=== PATIENT | female | born 1950 | race Caucasian/White ===

== ENCOUNTER 2017-03-14 07:27 | Inpatient (IN) | payer OTHER ==
[~2017-03-14] VITALS: Ht 165.1 cm; Wt 120.2 kg
--- NOTE | ~2017-03-14 | P ---
[facility] [place] [address] PROCEDURE REPORT Name: HUSSEIN BRICE Room #: 407-P ADM IN M.R.#: [id number] Admission: 03/14/17 Attend Phys: Toya Olsen Discharge: Date of : 46 Report #: [id number] THIS REPORT FOR: //name// CC: Toya Olsen MD DATE OF SERVICE: 03/19/2017 BRIEF HISTORY: The patient is a 66-year-old woman with iron deficiency anemia of uncertain etiology. PREOPERATIVE DIAGNOSIS: Iron deficiency anemia. POSTOPERATIVE DIAGNOSES: 1. Diminutive polyp, splenic flexure. 2. Multiple submucosal mass lesions of colon, questionably lipomas. MEDICATIONS: Deep sedation with propofol per anesthesia. SPECIMENS: 1. Biopsy submucosal lesion, distal transverse colon. 2. Diminutive polyp, splenic flexure. ESTIMATED BLOOD LOSS: 3 mL. PROCEDURE: Colonoscopy to cecum and terminal ileum with biopsy. DESCRIPTION OF PROCEDURE: The patient's consented for the surgery due the patient's altered mental status. Subsequently, the [employer] video colonoscope was introduced in the rectum, advanced under direct vision to the cecum. The patient's prep was inadequate yesterday and had additional prepping and thus had two days of prep. However, in spite of two days of prep, there were multiple pools of liquidy material scattered throughout the colon. For the most part, most of this suctioned through the scope and although was a copious amount, we were able to suction much of this material away. We very carefully worked the scope through the colon, suctioning out pools of liquidy brown material. We did reach the cecum, which was identified by the ileocecal valve and the appendiceal orifice. I was able to see the distal segment of the terminal ileum, which was normal. At that point, scope was withdrawn and careful circumferential views obtained. As noted, there were significant limitations of prep. However, we were able to clean up much of the colon with the exception of the cecum and proximal ascending colon. Unfortunately, in this area, there was a large amount of seed matter, which clogged the scope and we could not remove all the material. In spite of the fact we could not remove all the material, fair views were obtained in the proximal colon and no obvious mass [address] [address] PROCEDURE REPORT Name: HUSSEIN BRICE Room #: [facility]-P ADM IN M.R.#: [id number] Admission: 03/14/17 Attend Phys: Toya Olsen Discharge: Date of : 46 Report #: [id number] lesions or bleeding lesions were seen; however, a small mucosal lesion could have been overlooked due to limitations of the prep. As we withdrew the scope through the colon, the prep improved significantly and in particular, in the distal colon after cleaning up, good prep was achieved. In the distal transverse colon, there were several submucosal lesions of no more than 2 cm, that were smooth and benign appearance and were suspected to be lipomas, one of them was biopsied. At the splenic flexure, diminutive polyp seen and removed by biopsy. The scope was further withdrawn. No additional polypoid or neoplastic or mucosal lesions were seen. Again, no bleeding, no lesions were seen. In particular in this patient with iron deficiency anemia, there were no findings to suggest a colon cancer. The scope was withdrawn in the rectum. Upon retroflexion, no abnormalities were seen. Scope was withdrawn. The patient tolerated the procedure well. DISPOSITION: The patient with iron deficiency anemia. No bleeding lesions or source of blood loss were identified. We will follow up on the path of the lesions. Due to limitations of the prep, after the patient recovers from her recent acute illness, I would recommend a well-prepped colonoscopy and colorectal screening, in particular in the proximal colon today, the prep was not adequate for a high quality screening colonoscopy. By: [id number] Michael Reardon MD /nt
--- NOTE | ~2017-03-14 | P ---
[facility] [place] [address] PROCEDURE REPORT Name: HUSSEIN BRICE Room #: 407-P ADM IN M.R.#: [id number] Admission: 03/14/17 Attend Phys: Toya Olsen Discharge: Date of : 46 Report #: [id number] THIS REPORT FOR: //name// CC: Toya Olsen MD DATE OF SERVICE: 03/18/2017 PROCEDURE: Diagnostic EGD. PATIENT OF: Toya Olsen MD INDICATION FOR PROCEDURE: This patient has an iron deficiency anemia of undetermined etiology. EGD and colonoscopy are indicated in order to try to find the source of the anemia. Informed consent for this procedure was obtained prior to the administration of any medication. The risks of the procedure, which include bleeding, perforation, infection, complications of sedation and the possibility I could miss something have been explained to the patient and she has indicated her consent by signing. I believe that her also consented for us to do these procedures. Propofol was slowly titrated before and during this procedure for patient comfort by the anesthesia service. The [employer] upper videoscope was introduced through the upper esophageal sphincter and advanced under direct visualization to the descending duodenum. Findings are noted on withdrawal of the scope. The duodenal mucosa appears normal throughout its entirety. Pylorus, normal mucosa; antrum, some mild erythema is noted in the antrum; body, normal mucosa and cardia and fundus, normal mucosa. Retroflex view did not reveal any abnormalities. The scope was withdrawn into the esophagus. The Z-line is appropriately located at the top of the gastric folds and appears normal. The esophageal mucosa appears normal throughout its entirety. The scope was withdrawn. The patient was turned for colonoscopy, but unfortunately she passed a large amount of formed and liquid stool and therefore we will have to cancel her colonoscopy at this time because of poor prep. Thank you very much once again for allowing me to participate in her care, Dr. Olsen. [address] [address] PROCEDURE REPORT Name: HUSSEIN BRICE Room #: 407-P [facility] IN M.R.#: [id number] Admission: 03/14/17 Attend Phys: Toya Olsen Discharge: Date of : 46 Report #: [id number] We will make arrangements for her to have further colonoscopy prep tonight and retry tomorrow with regard to her full colonoscopy. <ELECTRONICALLY SIGNED> By: Yamilex Bland DO 03/19/17 0701 1554 0420 Yamilex Bland DO /nt
--- NOTE | ~2017-03-14 | HC ---
[facility] [place] [address] CONSULTATION Name: HUSSEIN BRICE Room #: 246-P ADM IN M.R.#: [id number] Admission: 03/14/17 Attend Phys: Toya Olsen Discharge: Date of : 46 Report #: [id number] THIS REPORT FOR: //name// CC: Toya Olsen TYPE OF REPORT: Infectious diseases consultation. REASON FOR CONSULTATION: I was asked to evaluate concerning sepsis. HISTORY OF PRESENT ILLNESS: The patient was a 66-year old with coronary artery disease, chronic kidney disease with last creatinine this past month of 4 who has had about a 7-10 day course of generalized weakness, malaise, body aches and anorexia. She became more lethargic and was taken into the Emergency Room last evening. There she was noted to be thrombocytopenic, encephalopathic with her renal failure and there was concern about TTP and hemolytic uremic syndrome. She therefore was transferred from [place], [place] to [facility] for further evaluation. The patient was unable to give any further details of her history. I did discuss with her who she lives with, who notes no other pertinent information. Previous to this, she was reasonably active. ALLERGIES: None known. MEDICATIONS: As noted on her MAR, having received vancomycin and ceftriaxone. PAST MEDICAL HISTORY: Coronary artery disease, coronary bypass grafting, hypertension, congestive heart failure, diabetes, chronic kidney disease, gout, gastroesophageal reflux, DVT, neuropathy and cholecystectomy. FAMILY HISTORY: Noncontributory. SOCIAL HISTORY: Nonsmoker. No significant alcohol intake. No travel. No HIV risks. REVIEW OF SYSTEMS: There has been no nausea, vomiting or diarrhea. No reported gross hematuria. She has had low back pain but did not localize this any further. Denied any headache or stroke symptoms. PHYSICAL EXAMINATION: VITAL SIGNS: Temperature is 100 degrees axillary, pulse 103, respiratory rate 22 and blood pressure 179/74 with a MAP of 111. SKIN: Unremarkable. LYMPH: Unremarkable. Moderately obese. NECK: Supple. EYES: Reactive to light. MOUTH: Dry edentulous. LUNGS: Clear. HEART: Regular, without murmur. [facility] [address] [place] [address] CONSULTATION Name: YUNIELHUSSEIN Room #: 246-P [facility] IN M.R.#: [id number] Admission: 03/14/17 Attend Phys: Toya Olsen Discharge: Date of : 46 Report #: [id number] ABDOMEN: Soft and nontender. No hepatosplenomegaly or mass. Mild CVA tenderness on the left compared to the right. EXTREMITIES: Unremarkable. LABORATORY STUDIES: Sodium 131, potassium 4, bicarbonate of 23 and creatinine is 5. Alkaline phosphatase 120, AST 97, ALT 45 and LDH 262. CPK 2005. Hemoglobin is 9.8; platelet count 53,000; WBC 6.2 with 86% segs and 8% lymphs and haptoglobin 369. Urinalysis: Packed wbc's and bacteria. Blood cultures from an outside Emergency Room one of two showing gram-negative bacilli. Her lactate 1.5 on 2 liters, pO2 83, pCO2 32 and pH 7.4. IMPRESSION: A 66-year-old diabetic with underlying coronary artery disease and chronic kidney disease, presents with fever, encephalopathy, gram-negative bacteremia, thrombocytopenia, mild lactic acidosis and elevated CPK with no evidence of schistocytes. I am suspecting toxic metabolic encephalopathy, DIC, rllbe-or-nrzjdag renal failure in the setting of sepsis from urinary tract source most likely. RECOMMENDATIONS: We would recommend further imaging of her abdomen to further assess for intra-abdominal abscess or obstructive uropathy. We will treat for sepsis, broad antibiotic coverage with vancomycin and meropenem. We will adjust her antibiotics pending further culture results. Repeat urine and blood cultures were obtained. I have discussed with the patient's family, Pulmonary Medicine and nursing staff in attendance. <ELECTRONICALLY SIGNED> By: Aditya Toney MD 03/15/17 0920 [id number] Aditya Toney MD /nt
--- NOTE | ~2017-03-14 | EEG ---
[facility] [place] [address] ELECTROENCEPHALOGRAM Name: HUSSEIN BRICE Room #: 407-P ADM IN M.R.#: [id number] Admission: 03/14/17 Attend Phys: Toya Jeff Discharge: Date of : 46 Report #: [id number] THIS REPORT FOR: //name// CC: Toya Olsen DATE OF SERVICE: 03/15/2017 This patient is being evaluated for altered mental status. EEG was done by placing the electrodes by standard 10/20 system of electrode placement. Both referential and sequential montages were used for recording. Background activity in this patient's EEG is about 8-9 Hz and 30-40 microvolts. This is a symmetrical activity. It is intermixed with theta range slowing on both sides. Photic stimulation was unremarkable. It is tough to say when the patient is awake and sleep because the EEG looks about the same, but on occasion it does look like somewhat more slow. IMPRESSION: This is an abnormal EEG, which will be consistent with a diagnosis of encephalopathy. However, the finding is nonspecific and can occur in multiple other etiologies like dementia, effect of psychotropic medication, etc. Clinical correlation is recommended. Thank you very much for this referral. <ELECTRONICALLY SIGNED> By: Judah Nguyen MD 03/17/17 1349 1357 1500 Judah Nguyen MD /nt
--- NOTE | ~2017-03-14 | HC ---
[facility] [place] [address] CONSULTATION Name: HUSSEIN BRICE Room #: 407-P ADM IN M.R.#: [id number] Admission: 03/14/17 Attend Phys: Toya Olsen Discharge: Date of : 46 Report #: [id number] THIS REPORT FOR: //name// CC: Toya Olsen DATE OF SERVICE: 03/14/2017 HISTORY OF PRESENT ILLNESS: This is a 66-year-old female patient who was evaluated by me for altered mental status. The patient is not able to provide any history at all. I talked to the nurses looking after this patient and talked to the patient's family and talked to Dr. Olsen, the referring physician. The family gives a history that she has been like this at least for a week. I am not sure how they were taking care of this patient but they were taking care of somehow and she was becoming progressively sleepy. She was not responsive and she was not able to walk and the just has to pick her up and take to the bathroom. She has a baseline kidney problem. She has a history of urinary tract infection. She was admitted to outside hospital and was transferred here for the possibility of TTP, but Hematology has seen this patient and it does not look like this patient has a TTP. The patient has a chronic decrease in platelet count and her PT, PTT is also decreased and nutritional status appeared to be poor. REVIEW OF SYSTEMS: Indicate she does have renal problem but apparently, she has been sick only for a week, but she did not see any physician during that time. She does have a lot of other problems as summarized above. PAST MEDICAL HISTORY: Positive for some neuropathy. She does have a low platelet. FAMILY HISTORY: Negative for early age stroke. SOCIAL HISTORY: She does not smoke. PHYSICAL EXAMINATION: NEUROLOGICAL: Very limited. She is sleepy and she does not say anything. She does not have much speech and I can tell anything about rest of the neurological examination. She does not appear to have any meningeal sign. VITAL SIGNS: She appeared to be breathing okay. A blood pressure is 179/74, pulse is 103, respiration is 22 and temperature is 100. IMPRESSION: This is a very sick lady with multiple problems. She appeared to be significantly encephalopathy from her systemic problem. I discussed with the family in detail that she needs further workup. They do not know whether she had a CAT scan or not in the hospital she was in, but she is going for CT scan today. [facility] [address] [place] [address] CONSULTATION Name: HUSSEIN BRICE Room #: 407-P [facility] IN .R.#: [id number] Admission: 03/14/17 Attend Phys: Toya Olsen Discharge: Date of : 46 Report #: [id number] RECOMMENDATIONS: 1. I will start the patient with CT scan and an EEG. 2. Her infections need to be treated and we may like to do MRI in this patient depending upon the CT and EEG results. 3. If she does not become better, she may have to have spinal tap but that is going to be difficult to arrange in this patient because of low platelet count and being on anticoagulation. ID is already seen this patient as I understand and they are already addressing that and we will defer that to them. I do not believe this patient has nonconvulsive status, but I think we need to exclude that. Her nutritional status is poor and she may need a nutritional supplement and in fact does not look like she was eating or drinking much for some time. Thank you very much for allowing me to share in the management of this patient and I will discuss this patient with you. <ELECTRONICALLY SIGNED> By: Judah Nguyen MD 03/17/17 1348 2054 0018 Judah Nguyen MD /nt
--- NOTE | ~2017-03-14 | S ---
[facility] [place] [address] SURGICAL PATH RPT PROCEDURE Name: HUSSEIN CAMPOS Room #: 407-P DIS IN M.R.#: [id number] Admission: 03/14/17 Date of : 46 Discharge: 03/21/17 Report #: [id number] Path Case #: [id number] PATHOLOGY REPORT COLLECTION DATE: 03/19/2017 RECEIVED DATE: 03/19/2017 SUBMITTING PHYS: Dr. Michael Reardon OTHER PHYS: Dr. Toya Olsen SPECIMEN(S) RECEIVED: A.Submucosal mass in distal transverse colon B.Polyp at splenic flexure * * * * * * * * * * * * FINAL DIAGNOSIS: A. "Submucosal mass and distal transverse colon", biopsy: - Colonic mucosa with mild reactive/hyperplastic changes; no significant submucosal tissue present for evaluation (see comment). B. "Polyp at splenic flexure", biopsy: - Tubular adenoma; no high-grade dysplasia. COMMENT: Within specimen A, histologic examination is limited by the superficial nature of the biopsy specimen. Only colonic mucosa with minimal to no submucosal tissue is present for evaluation. Clinical and endoscopic correlation is required. (CLW:lynne; 03/23/2017) PATHOLOGIST: Leena Elizabeth M.D. REPORT ELECTRONICALLY SIGNED BY: Leena Elizabeth M.D. DATE/TIME: 03/23/2017 20:25 * * * * * * * * * * * * GROSS PATHOLOGY: A. Received in formalin labeled "Hussein Campos, submucosal mass, distal transverse colon," are 4 segments of aparicio soft tissue measuring 1.3 x 0.8 x 0.4 cm in aggregate dimensions and ranging from 0.2 to 0.4 cm in maximum dimension. The specimen is submitted entirely in cassette A1. B. Received in formalin labeled "Hussein Campos, polyp at splenic flexure," are 4 segments of aparicio soft tissue measuring 0.9 x 0.5 x 0.2 cm in aggregate dimensions and ranging from 0.2 to 0.3 cm in maximum dimension. The specimen is submitted entirely in cassette B1. (TSD; 03/19/2017) [address] [address] SURGICAL PATH RPT PROCEDURE Name: HUSSEIN CAMPOS Room #: 407-P DIS IN M.R.#: [id number] Admission: 03/14/17 Date of : 46 Discharge: 03/21/17 Report #: [id number] Path Case #: [id number] CLINICAL HISTORY: Pre-OP DX: Anemia Post-OP DX: Polyps, submucosal mass INITIAL CPT CODE(S): A; 05531 B; 02118 Professional services performed by [facility] at [address] , [place] [address] Technical services performed by [facility] at [address] [place] [address], [facility] [address] [address]. [facility] [address] [address] PHONE: [phone] DIRECTOR: Nate Joya M.D. * * * END OF REPORT * * *
--- NOTE | ~2017-03-14 | EKG ---
[address] [place] [address] ELECTROCARDIOGRAM REPORT Name: YUNIELWILLIHUSSEIN Room #: 246-P ADM IN M.R.#: [id number] Admission: 03/14/17 Attend Phys: Toya Olsen Discharge: Date of : 46 Report #: [id number] THIS REPORT FOR: //name// [facility] Test Date: 2017-03-15 Test Time: 06:15:04 Pat Name: HUSSEIN BRICE Department: Room: 246 P Gender: F [employer]: ROGE : 1950 Requested By: Scarlet Berry Order Number: [id number] MD: John Breen Measurements Intervals [place] Rate: 92 P: 49 [place]: 153 QRS: -87 QRSD: 160 T: 59 QT: 413 QTc: 511 Interpretive Statements Sinus rhythm Right bundle branch block Left anterior hemiblock No previous ECG available for comparison Electronically Signed On 03-15-2017 7:49:35 MARKETING ENGINEER by John Breen [email or web address] <ELECTRONICALLY SIGNED> By: John Breen MD, [facility] 03/15/17 0749 0615 4 John Breen MD, FACC /EPI
--- NOTE | ~2017-03-14 | HC ---
[facility] [place] [address] CONSULTATION Name: HUSSEIN BRICE Room #: 246-P ADM IN M.R.#: [id number] Admission: 03/14/17 Attend Phys: Toya Olsen Discharge: Date of : 46 Report #: [id number] THIS REPORT FOR: //name// CC: Toya Olsen DATE OF SERVICE: 03/14/2017 NEPHROLOGY CONSULTATION REASON FOR CONSULTATION: Acute renal failure. HISTORY OF PRESENT ILLNESS: This is a 66-year-old female who presented about 2:00 this morning to [facility]. She was obtunded at that time. She had some fever. Evaluation there showed that she had a creatinine level of 5.03. She had a white count of 6.7, hemoglobin 10.3 and platelets of 52,000. With this new onset of renal failure, she was transferred for additional care. Also, during that time, she had a urinalysis which showed some pyuria and some microscopic hematuria. There were some other older labs showing she had some chronic kidney disease with prior creatinine levels a year ago running in the 1.7-1.8 range. In talking to the patient at this time, she still is very lethargic and partially obtunded. She does awaken enough to answers some very simple questions, but some of those are unreliable. She is unaware of prior renal-related problems. She is uncertain when she started having fever. She says she does have some abdominal pain, also has some pain upon deep breathing and coughing. She has had not much in as far as liquids, fluid or food over the past few days. Other than that, she is not able to provide much history. PAST MEDICAL HISTORY: Appears to include coronary artery disease with prior coronary artery bypass graft surgery. She has a midline sternotomy scar. There is one mention on outside records of a prior CABG. She has had a history of some hypertension, chronic kidney disease, prior deep venous thrombosis, gout, hyperlipidemia, hypothyroidism, on replacement, hypothyroidism as well as some anemia and chronic thrombocytopenia. There is apparently concerned of someone that she had thrombotic thrombocytopenic purpura and hence she needed transfer on a more urgent basis. That level will be discussed below. She has also had a previous cholecystectomy, although she cannot tell me the original of the scar on her abdomen. MEDICATIONS: Based upon her home list include atorvastatin 40 mg daily, Lyrica 150 mg, Eliquis 5 mg presumably b.i.d., furosemide 40 mg. frequency unknown, allopurinol 100 mg daily, metolazone 5 mg daily, metoprolol 25 mg, frequency unknown, isosorbide mononitrate 30 mg, frequency unknown, glipizide 10 mg, Tradjenta 5 mg, levothyroxine 0.2 mg daily, and amitriptyline 50 mg presumably daily. Again, I do not have frequency on those but that was all of her home [address] [address] CONSULTATION Name: HUSSEIN BRICE Room #: 246-P [facility] IN M.R.#: [id number] Admission: 03/14/17 Attend Phys: Toya Olsen Discharge: Date of : 46 Report #: [id number]. ALLERGIES: No known medical allergies. FAMILY HISTORY: Unavailable. SOCIAL HISTORY: The patient lives in [place], [place] and she is able to tell me that. She is and retired. REVIEW OF SYSTEMS: Difficult to obtain, basically as per the history of present illness. PHYSICAL EXAMINATION: GENERAL: Very lethargic, elderly female. She does awaken enough to answer some few sample questions. She then drifts back off to sleep. VITAL SIGNS: Blood pressure several hours ago on arrival 179/74, heart rate 103, temperature 100.0 degrees Fahrenheit, oxygen saturation 100% with respiratory rate 22 on supplemental oxygen. HEENT: Shows pupils are equal and reactive. Sclerae nonicteric. Oral mucosa is very dry. NECK: Supple, no thyromegaly or adenopathy. CHEST: Show shallow respirations bilaterally. I do not hear rales, but there is not much excursion. CARDIOVASCULAR: Heart has a regular rate and rhythm with a grade 2 systolic murmur that transmits to both carotids. ABDOMEN: Obese, has diminished bowel sounds. She is tender in her abdomen, more in the lower quadrants than the upper. I cannot palpate organomegaly or masses. EXTREMITIES: Show no upper extremity edema. There is some chronic bilateral lower extremity edema present. She has diminished peripheral pulses. Mercado catheter is in place, draining about 500-600 mL of moderately concentrated urine. Chest x-ray per my interpretation reveals some decreased overall airspace. There is some blunting of the costophrenic angles bilaterally, generalized haziness without caitlin infiltrates, sternotomy wires present. LABORATORY DATA: Sodium 131, potassium 4.0, chloride 96, bicarbonate 23, BUN 98, creatinine 5.0, glucose 284, AST 97, ALT 45, total bilirubin 0.5, calcium 8.5, magnesium 1.9, total protein 6.3, albumin 2.3, LDH 262, CPK 2005. White count 6.2, hemoglobin 9.8, hematocrit 29.2, platelets 53,000. Differential on the white count 86 neutrophils, 8 lymphs, 6 monos. Urinalysis ordered, but not drawn yet. Blood gas, pH 7.43, pCO2 of 32.6, pO2 of 83.5. Lactate 1.53. ASSESSMENT: 1. Acute kidney injury. On exam, she looks dry than her original blood [facility] [address] [place] [address] CONSULTATION Name: HUSSEIN BRICE Room #: 246-P ADM IN M.R.#: [id number] Admission: 03/14/17 Attend Phys: Toya Olsen Discharge: Date of : 46 Report #: [id number] pressure would indicate. She was not frankly hypotensive at the [facility], but it looks like she got a couple liters of fluid. I think ____ she starting to make more urine. Her urine at that location did show some pyuria and some microscopic hematuria. She now has a Mercado catheter in place and as I said it is making quite a bit of urine. We need to get a renal ultrasound to better characterized what is going on with her kidneys. My major concern is that she is septic with the combination of her fever, worsening renal function, accompanying thrombocytopenia, and evidence of infection. 2. Chronic kidney disease based upon a creatinine level of 1.7-1.8 in April 2016 on multiple checks at that time. 3. History of heart disease with coronary artery bypass graft surgery previously. 4. Mentioned in prior records are congestive heart failure. She does not look to be in heart failure. She does have some chronic edema. She is oxygenating fairly well and her chest x-ray does not look like heart failure. Again, there is concern of active infection more than anything else. 5. Longstanding diabetes mellitus. 6. Hypothyroidism, on replacement. 7. Anemia, which is chronic and appears to be near her baseline. 8. Thrombosed. She has had previous presentations with platelets less than 100,000 including last April at an outside hospital. She has been chronically thrombocytopenic on several checked since that time. There was concerned that she had thrombotic thrombocytopenic purpura (TTP). With her chronic anemia and previous thrombocytopenia, this does not look to be that. She has not been lyzing her red cells from what I can tell, some factors are difficult to differentiate, but I do not think that this is thrombotic thrombocytopenic purpura at this time. We will certainly keep an eye out for further tends, but I think we need to treat her for infection and associated sepsis. 9. Chronic obesity. PLAN: 1. I think we should move to the ICU for more closed monitoring. 2. Continue IV fluids. 3. Cultures have already been drawn. 4. Her antibiotic profile to be more broad-spectrum including vancomycin. 5. Close monitoring of intake, output and vital signs. 6. Get a renal ultrasound to further characterize her renal anatomy. 7. Hemodynamics support if needed, although she did not appear to need it at this time. 8. Close monitoring. 9. We will follow along in the care of this acutely ill patient. <ELECTRONICALLY SIGNED> By: Kilo Hamilton MD 03/15/17 0813 1428 [id number] Kilo Hamilton MD /nt
--- NOTE | ~2017-03-14 | 2DMMODE ---
[facility] [address] [place] [address] 2 D/M-MODE ECHOCARDIOGRAM Name: HUSSEIN BRICE Room #: 246-P ADM IN M.R.#: [id number] Admission: 03/14/17 Attend Phys: Toya Hancock Discharge: Date of : 46 Date of Service: 03/15/17 1438 Report #: [id number] THIS REPORT FOR: //name// APPROVED REPORT Study performed: 03/15/2017 11:56:10 EXAM: Comprehensive 2D, Doppler, and color-flow Echocardiogram Patient Location: ICU Room #: [facility] Status: routine BSA: 2.28 BP: 147/65 mmHg Other Information Study Quality: Technically Difficult Technically limited study due to body habitus, inability to position patient. Indications Congestive Heart Failure Diabetes Dyspnea CAD Echo Enhancing Agent Indication: Endocardial border delineation Agent(s) / Amount(s) Used: Optison 5 cc 2D Dimensions RVDd: 32.10 mm LVEF(%): 66.44 (>50%) IVSd: 13.75 (7-11mm) LVOT Diam: 20.01 (18-24mm) LVDd: 46.34 mm PWd: 13.62 (7-11mm) Ascending Ao: 33.33 (22-36mm) LVDs: 29.37 (25-40mm) Aortic Root: 25.53 mm IVC: 20.00 mm Lucero's LVEF: 66.44 % Volumes Left Atrial Volume (Systole) Single Plane 4CH: 45.19 mL Single Plane 2CH: 53.85 mL LA ESV Index: 24.00 mL/m2 Aortic Valve [facility] [place] [address] [place] [address] 2 D/M-MODE ECHOCARDIOGRAM Name: HUSSEIN BRICE Room #: 246-P [facility] IN .R.#: [id number] Admission: 03/14/17 Attend Phys: Toya Hancock Discharge: Date of : 46 Date of Service: 03/15/17 1438 Report #: [id number] AoV Peak Eric.: 1.98 m/s AO Peak Gr.: 15.70 mmHg LVOT Max P.72 mmHg LVOT Max V: 1.09 m/s ESTELA Vmax: 1.72 cm2 Mitral Valve E/A Ratio: 0.8 MV Decel. Time: 295.38 ms MV E Max Eric.: 1.22 m/s MV A Eric.: 1.45 m/s MV PHT: 85.66 ms IVRT: 58.82 ms Pulmonary Valve PV Peak Eric.: 1.38 m/s PV Peak Gr.: 7.60 mmHg Tricuspid Valve TR Peak Eric.: 2.91 m/s RAP Estimate: 10.00 mmHg TR Peak Gr.: 33.81 mmHg PA Pressure: 44.00 mmHg Left Ventricle The left ventricle is normal size. Mild concentric left ventricular hypertrophy. The left ventricular systolic function is normal. The left ventricular ejection fraction is within the normal range. LVEF is 65%. Mild diastolic dysfunction is present (impaired relaxation pattern). Right Ventricle The right ventricle is normal size. Right ventricle is hypokinetic. Atria The left atrium size is normal. The right atrium size is normal. Aortic Valve The aortic valve is normal in structure. The aortic valve is not well visualized. Aortic valve is calcified. The Aortic valve is sclerotic. No aortic regurgitation is present. There is no aortic valvular stenosis. Mitral Valve The mitral valve is normal in structure. Mild mitral regurgitation. No evidence of mitral valve stenosis. [facility] [address] [place] [address] 2 D/M-MODE ECHOCARDIOGRAM Name: HUSSEIN BRICE Room #: 246-P [facility] IN .R.#: [id number] Admission: 03/14/17 Attend Phys: Toya Hancock Discharge: Date of : 46 Date of Service: 03/15/17 1438 Report #: [id number] Tricuspid Valve The tricuspid valve is normal in structure. Mild tricuspid regurgitation. PAP is estimated at 44 mmHg. Pulmonic Valve Pulmonic valve is not well visualized. There is no pulmonic valvular regurgitation seen. Great Vessels The aortic root is normal in size. IVC is normal in size and collapses <50% with inspiration. Pericardium There is no pericardial effusion. <Conclusion> The left ventricle is normal size. Mild concentric left ventricular hypertrophy. The left ventricular systolic function is normal. Mild diastolic dysfunction is present (impaired relaxation pattern). The right ventricle is normal size. The left atrium size is normal. There is no aortic valvular stenosis. Mild mitral regurgitation. Mild tricuspid regurgitation. PAP is estimated at 44 mmHg. <ELECTRONICALLY SIGNED> By: Kalin Mckinley MD 03/15/17 1438 1438 1438 Kalin Mckinley MD /INF
--- NOTE | ~2017-03-14 | HC ---
[facility] [place] [address] CONSULTATION Name: HUSSEIN BRICE Room #: 407-[facility] IN M.R.#: [id number] Admission: 03/14/17 Attend Phys: Toya Olsen Discharge: Date of : 46 Report #: [id number] THIS REPORT FOR: //name// CC: Toya Olsen DATE OF SERVICE: 03/18/2017 HISTORY OF PRESENT ILLNESS: The patient is a 66-year-old white female, who was admitted with acute mental status changes, fever, decreased platelets, and increased BUN. She was noted to have profound gram-negative sepsis, E. coli pyelonephritis. She was seen by Neurology, diagnosed with a toxic metabolic encephalopathy. She has acute on chronic renal failure with Nephrology continuing to be involved with her creatinine currently at 3.4, whereas it was baseline at 1.7-1.8 a year ago. She is noted to have pulmonary hypertension, atelectasis. Infectious Disease is closely involved and she continues on IV ceftriaxone. She has premorbid peripheral neuropathy and is on Lyrica. We are seeing her in rehabilitation medicine consultation. PAST MEDICAL HISTORY: Includes longstanding history of thrombocytopenia and anemia. She has the peripheral neuropathy, history of gout, chronic kidney disease, DVT, cellulitis, GERD. MEDICATIONS: Please see the full medication listing. SOCIAL HISTORY: Lives in a house with her . No steps. Did not utilize gait aids up until about a week ago when she began using the walker. He is retired and is with her. REVIEW OF SYSTEMS: Did not offer any current complaints of chest pain, shortness of breath, or abdominal discomfort. She does have painful feet, has the peripheral neuropathy. Left foot appears more painful than right. PHYSICAL EXAMINATION: GENERAL: A 66-year-old obese white female, in no obvious distress. VITAL SIGNS: Last recorded temperature 98.6, pulse 76, respirations 18, blood pressure 155/68. NEUROLOGIC: The patient is alert. She is confused. She could not tell me the year. She knew she was in the hospital, but could not tell me the name of the hospital. Facies appeared to be symmetric. EOMs appeared intact. EXTREMITIES: She has functional range of motion of both upper extremities. Strength is grade 4-/5. DTRs are trace to 1. Lower extremities, she has some discomfort with her distal lower extremities, especially on the left. She does have 1+ distal lower extremity edema. She had some discomfort with attempting to move her left large toe. Strength is probably only a grade 3+/5-3/5. She has been max assist with sit to stand. Noted to have some apraxia. [address] [address] CONSULTATION Name: HUSSEIN BRICE Room #: 407-P ADM IN M.R.#: [id number] Admission: 03/14/17 Attend Phys: Toya Olsen Discharge: Date of : 46 Report #: [id number] ASSESSMENT: A 66-year-old white female with the following problem list: 1. Toxic metabolic encephalopathy. 2. Profound gram-negative sepsis. 3. Escherichia coli pyelonephritis. 4. Acute on chronic renal failure with significant increased creatinine. 5. Pulmonary hypertension. 6. Peripheral neuropathy. 7. Left foot/large toe discomfort, could be consistent with her peripheral neuropathy, but we will order a uric acid as she does have a past history of gout. 8. Diabetes mellitus. 9. Longstanding thrombocytopenia and anemia. PLAN: We are following regarding her tolerance level. She has multiple medical comorbidities and it certainly may be best for her to receive her rehabilitation within an acute in-hospital inpatient rehabilitation cortes where the multiple national sales consultant physicians can continue to follow along with her. We will be glad to assist regarding her rehab therapy needs. By: 1031 1422 Marino Vences MD /PMT
--- NOTE | ~2017-03-14 | S ---
[facility] [place] [place] [address] SURGICAL PATH RPT PROCEDURE Name: HUSSEIN CAMPOS Room #: 246-P ADM IN M.R.#: [id number] Admission: 03/14/17 Date of : 46 Discharge: Report #: [id number] Path Case #: [id number] PATHOLOGY REPORT COLLECTION DATE: 03/14/2017 RECEIVED DATE: 03/15/2017 SUBMITTING PHYS: Dr. Toya Olsen OTHER PHYS: SPECIMEN(S) RECEIVED: A.Peripheral smear * * * * * * * * * * * * FINAL DIAGNOSIS: Peripheral blood smear: - Moderate microcytic anemia and moderate to severe thrombocytopenia. (see comment) COMMENT: Overall, the peripheral blood has moderate microcytic anemia and moderate to severe thrombocytopenia. The WBC count is within the normal reference range. The etiology of the findings is unclear based entirely on slide review. Potential causes of microcytic anemia including iron deficiency and thalassemia. Potential causes of thrombocytopenia including immune and non-immune platelet destruction, drug and/or toxic exposures, dilutional, and primary bone marrow disorders. Correlation with clinical history and additional laboratory data is recommended. (CLW:; 03/16/2017) PATHOLOGIST: Leena Elizabeth M.D. REPORT ELECTRONICALLY SIGNED BY: Leena Elizabeth M.D. DATE/TIME: 03/16/2017 23:11 * * * * * * * * * * * * MICROSCOPIC DESCRIPTION: CBC Data (03/14/17): WBC 6,200 /uL, RBC 3.73, hemoglobin 9.8 g/dL, hematocrit 29.2%, MCV 78.4 fL, MCH 26.3 pg, MCHC 33.6 g/dL, RDW 16.5%. Platelet count 53,000 /uL. Manual white blood cell differential: segs 86%, lymphs 8%, monos 6%. Peripheral Blood Smear: Cytomorphological examination of the Daigle's stained peripheral blood smear confirms the provided data. Red blood cells show moderate microcytic anemia with mild anisocytosis. No significant poikilocytosis is identified. No schistocytes or microspherocytes are seen. White blood cells are predominantly segmented neutrophils and are without significant dyspoiesis or significant left shift. [place] [id number] SURGICAL PATH RPT PROCEDURE Name: HUSSEIN CAMPOS Room #: 246-P ADM IN M.R.#: [id number] Admission: 03/14/17 Date of : 46 Discharge: Report #: [id number] Path Case #: [id number] Lymphocytes are predominantly small, round, and mature appearing with condensed chromatin and scant cytoplasm with admixed large granular lymphocytes and occasional reactive appearing lymphocytes. On scanning, no markedly atypical lymphoid cells are seen. Monocytes are mature. Platelets are moderate to markedly decreased in number and mainly normal in morphology with rare larger platelets noted. GROSS PATHOLOGY: Received are two Daigle's stained peripheral blood smears labeled "Hussein Campos." (CLW:; 03/16/2017) CLINICAL HISTORY: 66 year-old woman with anemia and thrombocytopenia. Morphologic review of the peripheral blood smear is requested by the patient's physician. INITIAL CPT CODE(S): A; [place] Professional services performed by [facility] [address], [place] [address] Technical services performed by [facility] at [address] [place] [address], [address] [address]. [facility] [address] [place] [address] PHONE: [phone] DIRECTOR: Nate Joya M.D. * * * END OF REPORT * * *
[2017-03-14 10:40] VITALS: BP 179/74
[2017-03-14 12:23] LABS: ABG SAMPLE TYPE ARTERIAL; BE(vivo) -2.4 mmol/L (-2 to +3); HCO3 21.2 mmol/L (22.0-26.0); LACTATE 1.53 mmol/L (0.5-2.0); O2(CT) 15.7 mL/dL (15.0-23.0); O2Hb 95.5 % (92.0-98.0); PCO2 32.6 mmHg (35.0-45.0); PO2 83.5 mmHg (80.0-100.0); STICK SITE L.BRACHIAL; pH 7.431 (7.360-7.450); sO2 96.6 % (92.0-98.0); tCO2 22.2 mmol/L (24.0-30.0)
[2017-03-14 13:06] LABS: ABSOLUTE RETIC COUNT 0.0312 10^6/uL; HEMATOCRIT 29.2 % (37.0-47.0); HEMOGLOBIN 9.8 gm/dL (12.0-15.0); MCH 26.3 pg (26.0-34.0); MCHC 33.6 g/dL (28.0-37.0); MCV 78.4 fL (80.0-100.0); OBSERVED RETIC COUNT 0.84 % (0.6-2.6); RBC 3.73 mil/uL (4.20-5.00); RDW 16.5 % (10.5-14.5); WBC 6.2 thou/uL (4.0-11.0)
[2017-03-14 13:08] LABS: MANUAL DIFF YES
[2017-03-14 13:20] LABS: ALBUMIN 2.3 g/dL (3.4-5.0); CALCIUM 8.5 mg/dL (8.5-10.1); DIRECT BILIRUBIN 0.3 mg/dL (<0.1-0.3); MAGNESIUM 1.9 mg/dL (1.8-2.4); TOTAL BILIRUBIN 0.5 mg/dL (<0.1-1.0); TOTAL PROTEIN 6.3 g/dL (6.4-8.2)
[2017-03-14 13:57] LABS: ABSOLUTE NEUTROPHILS 5.3 thou/uL (1.4-8.2); LARGE PLATELETS FEW; TOTAL CELL COUNT 100
[2017-03-14 13:58] LABS: ANISOCYTOSIS 1+
[2017-03-14 13:59] LABS: PLATELET COUNT 53 thou/uL (150-400)
[2017-03-14 15:48] LABS: URINE BILIRUBIN NEGATIVE (Negative); URINE BLOOD 3+ (Negative); URINE COLOR YELLOW; URINE GLUCOSE-RANDOM* NEGATIVE (Negative); URINE KETONES NEGATIVE (Negative); URINE NITRITE NEGATIVE (Negative); URINE PROTEIN (DIPSTICK) 1+ (Negative); URINE UROBILINOGEN 0.2 E.U./dl (0.2-1.0)
[2017-03-14 15:53] LABS: SQUAMOUS 0-3 Few /LPF (0-3); URINE WBC >25 Many /HPF (0-5)
[2017-03-14 15:55] LABS: BACTERIA >30 Many /HPF (None Seen)
[2017-03-14 15:56] LABS: CASTS None Seen /LPF (None Seen); CRYSTALS None Seen /LPF (None Seen); URINE CREATININE-RANDOM* 136.4 mg/dL
[2017-03-14 18:55] LABS: ABSOLUTE NEUTROPHILS 4.8 thou/uL (1.4-8.2); BASOPHILS 0.3 % (0.0-2.0); HEMATOCRIT 27.2 % (37.0-47.0); HEMOGLOBIN 9.3 gm/dL (12.0-15.0); LYMPHOCYTES 10.1 % (24.0-44.0); MCH 26.6 pg (26.0-34.0); MCHC 34.2 g/dL (28.0-37.0); MONOCYTES 7.9 % (1.0-8.0); POLYS 81.7 % (36.0-66.0); RBC 3.49 mil/uL (4.20-5.00); RDW 16.4 % (10.5-14.5); WBC 5.9 thou/uL (4.0-11.0)
[2017-03-14 19:00] VITALS: BP 147/65
[2017-03-14 19:01] LABS: MANUAL DIFF NO
[2017-03-14 19:05] LABS: CALCIUM 8.6 mg/dL (8.5-10.1); CREATININE 4.9 mg/dL (0.6-1.0); POTASSIUM 3.7 mmol/L (3.5-5.1)
[2017-03-14 19:09] LABS: APTT 35.5 Seconds (24.5-32.8); FIBRINOGEN 511.3 mg/dL (210-360); INR 1.1; PROTIME 11.5 Seconds (9.3-11.4)
[2017-03-14 19:40] LABS: PLATELET COUNT 48 thou/uL (150-400)
[2017-03-14 19:41] LABS: ANISOCYTOSIS 1+
[2017-03-14 19:42] LABS: LARGE PLATELETS FEW
[2017-03-14 23:06] LABS: CALCIUM 8.6 mg/dL (8.5-10.1); CREATININE 4.8 mg/dL (0.6-1.0); POTASSIUM 3.7 mmol/L (3.5-5.1)
[2017-03-14 23:11] LABS: HEMOGLOBIN 9.1 gm/dL (12.0-15.0)
[2017-03-14 23:13] LABS: HEMATOCRIT 26.9 % (37.0-47.0); MCH 26.6 pg (26.0-34.0); MCV 78.2 fL (80.0-100.0); RBC 3.44 mil/uL (4.20-5.00); RDW 16.9 % (10.5-14.5); WBC 5.8 thou/uL (4.0-11.0)
[2017-03-14 23:17] LABS: MANUAL DIFF YES
[2017-03-15] VITALS (20 sets, daily range): BP systolic 93–159; BP diastolic 38–147
[2017-03-15 00:28] LABS: ABSOLUTE NEUTROPHILS 4.7 thou/uL (1.4-8.2); ANISOCYTOSIS 2+; ATYPICAL LYMPHS 1 %; LARGE PLATELETS RARE; PLATELET COUNT 49 thou/uL (150-400); TOTAL CELL COUNT 100
[2017-03-15 02:23] LABS: HEMATOCRIT 27.7 % (37.0-47.0); MCH 25.8 pg (26.0-34.0); MCHC 32.5 g/dL (28.0-37.0); MCV 79.4 fL (80.0-100.0); RBC 3.49 mil/uL (4.20-5.00); RDW 16.8 % (10.5-14.5); WBC 5.5 thou/uL (4.0-11.0)
[2017-03-15 02:24] LABS: CALCIUM 8.4 mg/dL (8.5-10.1); CREATININE 4.8 mg/dL (0.6-1.0); POTASSIUM 3.5 mmol/L (3.5-5.1)
[2017-03-15 02:31] LABS: MANUAL DIFF YES
[2017-03-15 05:21] LABS: ABSOLUTE NEUTROPHILS 4.6 thou/uL (1.4-8.2); PLATELET COUNT 50 thou/uL (150-400); TOTAL CELL COUNT 100
[2017-03-15 05:22] LABS: ANISOCYTOSIS 2+; LARGE PLATELETS RARE
[2017-03-15 05:27] LABS: ABG SAMPLE TYPE ARTERIAL; BE(vivo) -1.9 mmol/L (-2 to +3); HCO3 22.8 mmol/L (22.0-26.0); LACTATE 1.36 mmol/L (0.5-2.0); O2Hb 96.1 % (92.0-98.0); PCO2 38.1 mmHg (35.0-45.0); PO2 89.5 mmHg (80.0-100.0); pH 7.394 (7.360-7.450); sO2 96.8 % (92.0-98.0); tCO2 23.9 mmol/L (24.0-30.0)
[2017-03-15 05:28] LABS: STICK SITE R.RADIAL
[2017-03-15 08:12] LABS: % SATURATION 5 % (20-39); IRON 9 ug/dL (50-170); TIBC 169 ug/dL (250-450); UIBC 160 ug/dL
[2017-03-15 09:12] LABS: FOLIC ACID 33.1 ng/mL (8.6-58.9)
[2017-03-16] VITALS (24 sets, daily range): BP systolic 108–148; BP diastolic 40–61
[2017-03-16 04:29] LABS: WBC 4.2 thou/uL (4.0-11.0)
[2017-03-16 04:31] LABS: HEMATOCRIT 23.4 % (37.0-47.0); MCH 26.7 pg (26.0-34.0); MCHC 34.3 g/dL (28.0-37.0); MCV 77.9 fL (80.0-100.0); RDW 17.1 % (10.5-14.5)
[2017-03-16 04:47] LABS: ALBUMIN 1.7 g/dL (3.4-5.0); CALCIUM 8.2 mg/dL (8.5-10.1); CREATININE 4.1 mg/dL (0.6-1.0); PHOSPHORUS 4.8 mg/dL (2.5-4.9); POTASSIUM 3.3 mmol/L (3.5-5.1); TOTAL BILIRUBIN 0.3 mg/dL (<0.1-1.0); TOTAL PROTEIN 5.4 g/dL (6.4-8.2)
[2017-03-17 00:05] VITALS: BP 145/51
[2017-03-17 04:53] VITALS: BP 153/58
[2017-03-17 05:18] LABS: ALBUMIN 1.8 g/dL (3.4-5.0); CALCIUM 8.1 mg/dL (8.5-10.1); CREATININE 3.6 mg/dL (0.6-1.0); MAGNESIUM 1.9 mg/dL (1.8-2.4); PHOSPHORUS 4.2 mg/dL (2.5-4.9); POTASSIUM 3.6 mmol/L (3.5-5.1)
[2017-03-17] MEDS ORDERED: ATORVASTATIN CA40 MG PO (07:52)
[2017-03-17] MEDS ORDERED: LYRICA 50 MG50 MG (07:53)
[2017-03-17] MEDS ORDERED: ELIQUIS5 MG PO (07:55)
[2017-03-17] MEDS ORDERED: LASIX 40 MG TAB40 M2 PO (07:56)
[2017-03-17] MEDS ORDERED: ALLOPURINOL 10100 M1 (07:57)
[2017-03-17] MEDS ORDERED: METOLAZONE 5 MG5 MG (07:59)
[2017-03-17] MEDS ORDERED: LOPRESSOR25 (08:01)
[2017-03-17] MEDS ORDERED: GLUCOTROL10 MG (08:05)
[2017-03-17] MEDS ORDERED: TRADJENTA5 MG (08:05)
[2017-03-17] MEDS ORDERED: SYNTHROID100 MCG (08:06)
[2017-03-17] MEDS ORDERED: AMITRIPTYLINE H10 M3 (08:07)
[2017-03-17 08:24] VITALS: BP 183/75
[2017-03-17 13:02] LABS: INR 1.1; PROTIME 11.4 Seconds (9.3-11.4)
[2017-03-17 16:23] VITALS: BP 163/68
[2017-03-17 18:10] LABS: IgG 689 mg/dL (700-1600)
[2017-03-17 19:30] VITALS: BP 154/55
[2017-03-18 01:11] LABS: HEPATITIS C VIRUS AB <0.1 (0.0-0.9)
[2017-03-18 04:00] VITALS: BP 152/66
[2017-03-18 06:05] LABS: HEMATOCRIT 24.3 % (37.0-47.0); HEMOGLOBIN 8.2 gm/dL (12.0-15.0); MCH 26.7 pg (26.0-34.0); MCHC 33.7 g/dL (28.0-37.0); MCV 79.1 fL (80.0-100.0); PLATELET COUNT 69 thou/uL (150-400); RBC 3.08 mil/uL (4.20-5.00); RDW 17.3 % (10.5-14.5); WBC 7.4 thou/uL (4.0-11.0)
[2017-03-18 06:20] LABS: ALBUMIN 1.9 g/dL (3.4-5.0); CALCIUM 8.4 mg/dL (8.5-10.1); CREATININE 3.4 mg/dL (0.6-1.0); PHOSPHORUS 3.9 mg/dL (2.5-4.9); POTASSIUM 3.7 mmol/L (3.5-5.1)
[2017-03-18 06:36] LABS: MANUAL DIFF YES
[2017-03-18 07:54] LABS: ABSOLUTE NEUTROPHILS 5.5 thou/uL (1.4-8.2); METAMYELOCYTES 2 %; TOTAL CELL COUNT 100
[2017-03-18 07:55] LABS: ANISOCYTOSIS 1+; ATYPICAL LYMPHS 2 %
[2017-03-18 07:58] LABS: POLYCHROMASIA OCCASIONAL
[2017-03-18 10:21] VITALS: BP 155/68
[2017-03-18 22:11] VITALS: BP 158/70
[2017-03-19 04:55] VITALS: BP 158/72
[2017-03-19 06:09] LABS: ALBUMIN 2.1 g/dL (3.4-5.0); CALCIUM 8.6 mg/dL (8.5-10.1); CREATININE 2.9 mg/dL (0.6-1.0); PHOSPHORUS 3.7 mg/dL (2.5-4.9); POTASSIUM 3.5 mmol/L (3.5-5.1)
[2017-03-19 08:00] VITALS: BP 187/86
[2017-03-19] MEDS ORDERED: LOPRESSOR25 PO (09:58)
[2017-03-19] MEDS ORDERED: ASPIRIN325 PO (09:59)
[2017-03-19] MEDS ORDERED: LYRICA 50 MG50 MG PO (09:59)
[2017-03-19] MEDS ORDERED: GLYBURIDE 5 MG T5 M1 PO (09:59)
[2017-03-19] MEDS ORDERED: NOVOLOG100 UNIT/1 SUBQ (09:59)
[2017-03-19] MEDS ORDERED: VITAMIN B-1100 M2 PO (10:00)
[2017-03-19] MEDS ORDERED: ALLOPURINOL 10100 M1 PO (10:00)
[2017-03-19] MEDS ORDERED: CEFUROXIME500 MG PO (10:01)
[2017-03-19] MEDS ORDERED: SYNTHROID100 MCG PO (10:01)
[2017-03-19 12:11] LABS: CERULOPLASMIN 44.3 mg/dL (19.0-39.0)
[2017-03-19 16:08] VITALS: BP 171/66
[2017-03-19 18:30] VITALS: BP 150/65
[2017-03-19 20:00] VITALS: BP 188/72
[2017-03-20 04:00] VITALS: BP 179/96
[2017-03-20 08:00] VITALS: BP 177/67
[2017-03-20 16:00] VITALS: BP 178/69
[2017-03-20 18:01] VITALS: BP 187/52
[2017-03-20 20:00] VITALS: BP 175/71
[2017-03-21 04:00] VITALS: BP 172/58
[2017-03-21 08:00] VITALS: BP 178/76
[2017-03-21] MEDS ORDERED: AMITRIPTYLINE H10 M3 PO (10:33)
[2017-03-21] MEDS ORDERED: ATORVASTATIN CA40 MG PO (10:33)
[2017-03-21 10:38] VITALS: BP 178/76
[2017-03-21 10:44] VITALS: BP 178/76
[2017-03-21 13:03] VITALS: BP 178/76
[2017-03-21] MEDS ORDERED: CIPRO500 MG PO (13:03)
[2017-03-23 12:47] VITALS: BP 178/76
== END 2017-03-21 14:02 | disposition home health service (06) | DRG 871 ==
LOC: 2N 07:27 → ICU 10:52 → 4N 03-17 08:17
PROVIDERS: Hospitalist; Internal Medicine Hematology & Oncology; Internal Medicine Nephrology; Internal Medicine Pulmonary Disease; Nurse Practitioner; Specialist
PROC: 02HV33Z Insertion of Infusion Device into Superior Vena Cava, Percutaneous Approach (ICD-10-PCS; principal; 2017-03-14)
PROC: 0DJ08ZZ Inspection of Upper Intestinal Tract, Via Natural or Artificial Opening Endoscopic (ICD-10-PCS; 2017-03-18)
PROC: 0DBL8ZX Excision of Transverse Colon, Via Natural or Artificial Opening Endoscopic, Diagnostic (ICD-10-PCS; 2017-03-19)
DX: A41.51 Sepsis due to Escherichia coli [E. coli] (principal); G92 Toxic encephalopathy; N17.9 Acute kidney failure, unspecified; N12 Tubulo-interstitial nephritis, not specified as acute or chronic; N18.4 Chronic kidney disease, stage 4 (severe); J98.11 Atelectasis; E46 Unspecified protein-calorie malnutrition; Z68.41 Body mass index [BMI] 40.0-44.9, adult; I13.0 Hypertensive heart and chronic kidney disease with heart failure and stage 1 through stage 4 chronic kidney disease, or unspecified chronic kidney disease; I25.10 Atherosclerotic heart disease of native coronary artery without angina pectoris; I50.9 Heart failure, unspecified; M10.9 Gout, unspecified; E11.40 Type 2 diabetes mellitus with diabetic neuropathy, unspecified; D69.6 Thrombocytopenia, unspecified; E03.9 Hypothyroidism, unspecified; E78.5 Hyperlipidemia, unspecified; E66.9 Obesity, unspecified; B96.20 Unspecified Escherichia coli [E. coli] as the cause of diseases classified elsewhere; I27.20 Pulmonary hypertension, unspecified; E11.42 Type 2 diabetes mellitus with diabetic polyneuropathy; K21.9 Gastro-esophageal reflux disease without esophagitis; E11.649 Type 2 diabetes mellitus with hypoglycemia without coma; E11.65 Type 2 diabetes mellitus with hyperglycemia; D50.9 Iron deficiency anemia, unspecified; M19.90 Unspecified osteoarthritis, unspecified site; Z79.899 Other long term (current) drug therapy; Z95.1 Presence of aortocoronary bypass graft; Z86.718 Personal history of other venous thrombosis and embolism; Z90.49 Acquired absence of other specified parts of digestive tract
CPT/HCPCS: 10203; 10790; 27000; 62110; 62900; 70005